=== PATIENT | male | born 1990 | race African-American/Black ===

== ENCOUNTER 2018-05-10 02:29 | Emergency (ER) | payer MEDICAID ==
[~2018-05-10] VITALS: Ht 188 cm; Wt 82.0 kg
[2018-05-10] MEDS ORDERED: IBUPROFEN 800MG TABLET PO ONE (06:30)
[2018-05-10] MEDS ORDERED: TETANUS, DIPHTHERIA, PERTUSSIS VAC/PF 0.5ML (>7YR OLD) IM ONE (06:30)
[2018-05-10] MEDS ORDERED: BACITRACIN ZINC OINT UDPKT TOP ONE ×2 (06:30→06:45)
[2018-05-10] MEDS ORDERED: LIDOCAINE 1%/EPI 1:100,000 10 ML VIAL IJ ONE (07:30)
[2018-05-10] MEDS ORDERED: FAMOTIDINE 20MG/2ML VIAL IV ONE (07:35)
[2018-05-10 09:24] VITALS: BP 131/82
== END 2018-05-10 09:30 | disposition home or self-care (01) ==
LOC: ER 02:29
DX: S81.812A Laceration without foreign body, left lower leg, initial encounter (principal); S81.811A Laceration without foreign body, right lower leg, initial encounter; F12.10 Cannabis abuse, uncomplicated; W54.0XXA Bitten by dog, initial encounter; Y93.89 Activity, other specified; Y92.488 Other paved roadways as the place of occurrence of the external cause; Y99.8 Other external cause status
CPT/HCPCS: 12002; 73590; 90471; 90715; 99284; J3490